=== PATIENT | female | born 1980 | race Caucasian/White ===

== ENCOUNTER 2020-02-23 15:24 | Outpatient (CLI) | payer BC, SELFPAY ==
--- NOTE | ~2020-02-23 | CT_ITS ---
EXAMINATION: CT abdomen pelvis wo con DATE: 02/23/2020 16:13 INDICATION: Unspecified abdominal pain TECHNIQUE: Computed tomography (CT) of the abdomen and pelvis was performed without intravenous contr ast. The dose-length product (DLP) was 1088.46 mGy-cm. Automated exposure control and iterative recon struction technique were employed. COMPARISON: 09/30/2010 FINDINGS: The lung bases are clear. The heart size is normal. The liver is diffusely low in attenuati on when compared with the spleen, consistent with hepatic steatosis. The spleen, pancreas, gallbladde r, and adrenal glands are normal. There are punctate nonobstructing stones of the left kidney. The ri ght kidney is normal. No stones are identified in the ureters or bladder. There is no hydronephrosis or hydroureter. The appendix is normal. No pathologically enlarged abdominal or pelvic lymph nodes ar e identified. There is no free intraperitoneal gas or evidence of bowel obstruction. IMPRESSION: 1. No CT correlate for the patient's symptoms. 2. Punctate nonobstructing left nephrolithiasis. 3. Diffuse hepatic steatosis. Reviewed, dictated and finalized at location A.
[2020-02-23 16:45] LABS: Hematocrit 39.8 % (37.0-47.0); Hemoglobin 14.1 g/dL (12.0-15.0); Mean Corpuscular HGB Conc 35.4 g/dl (32-36); Mean Corpuscular Hemoglobin 28.7 pg (26-34); Mean Corpuscular Volume 80.9 fl (80-100); Mean Platelet Volume 11.6 fl (7.4-10.4); Platelet Count Result 261 k/mm3 (150-375); Red Blood Count 4.92 M/mm3 (4.2-5.4); Red Cell Distribution Width 13.8 % (11.5-14.5); White Blood Count 9.5 K/mm3 (4.5-10.0)
[2020-02-23 16:58] LABS: Alanine Aminotransferase 29 U/L (4-35); Albumin Level 4.2 g/dL (3.5-5.1); Alkaline Phosphatase 61 U/L (38-126); Anion Gap 6 mmol/L (8-16); Aspartate Amino Transferase 28 U/L (14-36); Bilirubin,Total 0.4 mg/dL (0.2-1.3); Blood Urea Nitrogen 11 mg/dL (7-17); Calcium 9.6 mg/dL (8.4-10.2); Carbon Dioxide 28 mmol/L (22-30); Chloride 105 mmol/L (98-107); Cholesterol 159 mg/dL (0-200); Estimated Glomerular Filt Rate > 60; Glucose 93 mg/dL (65-105); HDL Direct 51 mg/dL; Potassium 3.7 mmol/L (3.4-5.0); Sodium 139 mmol/L (137-145); Triglycerides 306 mg/dL (<150)
[2020-02-23 17:00] LABS: Add Urine Microscopic? YES; Appearance Urine Clear (Clear); Bacteria Urine Trace /hpf; Bilirubin Urine Negative (Negative); Blood Urine 2+ (Negative); Color Urine Yellow (Yellow); Glucose Urine UA Negative (Negative); Ketones Urine Negative (Negative); Leukocyte Esterase Ur Trace LEU/UL (Negative); Mucus Urine Rare /lpf; Nitrate Urine Negative (Negative); Protein Urine Negative (Negative); RBC Urine 0-2 /hpf (0-2); Specific Grav Ur 1.016 (1.001-1.035); Squamous Epithelial Cell Urine Many /hpf (Few); Urobilinogen Urine Negative mg/dL (<2.0)
[2020-02-23 17:08] LABS: LDL Cholesterol Direct 87 mg/dL
== END 2020-02-23 15:25 | disposition home or self-care (01) ==
PROVIDERS: Nurse Practitioner; PCP Internal Medicine; Visit Provider Nurse Practitioner
DX: R31.9 Hematuria, unspecified (principal); D50.9 Iron deficiency anemia, unspecified; Z13.6 Encounter for screening for cardiovascular disorders; R10.9 Unspecified abdominal pain; K76.0 Fatty (change of) liver, not elsewhere classified; N20.0 Calculus of kidney
CPT/HCPCS: 36415; 74176; 80053; 80061; 81001; 85027; 87086; 87088

== ENCOUNTER 2020-03-15 13:46 | Outpatient (CLI) | payer BC, SELFPAY ==
--- NOTE | ~2020-03-15 | MMUS_ITS ---
EXAMINATION: MM diagnostic judy BI w makenzie, US breast RT limited HISTORY: Bruising and palpable lump lower lateral right breast. History of blood disorder. TECHNIQUE: Additional 3-D tomosynthesis images of the breasts were performed and synthetic 2-D images were generated. CAD analysis was submitted and interpreted. High resolution Limited right breast ult rasound was performed. COMPARISON: No prior studies for comparison. BREAST PARENCHYMAL COMPOSITION: The breasts are heterogenously dense, which may obscure small masses. FINDINGS: MAMMOGRAPHIC FINDINGS: There is focal cluster of masses in the lower outer aspect of the right breast corresponding to the a tita of palpable concern. There is no mammographic evidence for malignancy in the left breast. ULTRASOUND: Limited right breast ultrasound: In the area of palpable concern in the right breast at 9:00 there is a cluster of partially cystic ma sses without internal vascularity, largest measuring 1.7 x 1.5 x 1.1 cm greatest dimension. IMPRESSION: 1. Cluster of complex cystic masses lower outer quadrant of the right breast. Given the history of br uising and bleeding disorder these masses likely represents areas of hematoma/seroma. 2. Recommend 3 month follow-up diagnostic right mammogram and ultrasound recommended to assess for re solution. BI-RADS category 3, probably benign findings. Reviewed, dictated and finalized at location A. IMPRESSION: 1. Cluster of complex cystic masses lower outer quadrant of the right breast. G iven the history of bruising and bleeding disorder these masses likely represen ts areas of hematoma/seroma. 2. Recommend 3 month follow-up diagnostic right mammogram and ultrasound recomm ended to assess for resolution. BI-RADS category 3, probably benign findings.
== END 2020-03-15 13:47 | disposition home or self-care (01) ==
PROVIDERS: PCP Internal Medicine; Visit Provider Obstetrics & Gynecology Gynecology
DX: R92.8 Other abnormal and inconclusive findings on diagnostic imaging of breast (principal)
CPT/HCPCS: 76642; 77062; 77066; G0279

== ENCOUNTER 2020-07-09 10:54 | Outpatient (CLI) | payer BC, SELFPAY ==
--- NOTE | ~2020-07-09 | XR_ITS ---
EXAMINATION: XR shoulder LT min 2V DATE: 07/09/2020 11:26 INDICATION: Left shoulder pain. TECHNIQUE: 4 views of left shoulder were obtained. COMPARISON: None. FINDINGS: Bone alignment is normal. No fracture. Joint spaces are well maintained. IMPRESSION: 1. Normal left shoulder. Reviewed, dictated and finalized at location A. GER TESTER IMPRESSION: 1. Normal left shoulder.
--- NOTE | ~2020-07-09 | XR_ITS ---
EXAMINATION: XR_RIBSBI_CR INDICATION: Pleurodynia TECHNIQUE: 3 views of the bilateral ribs were obtained. COMPARISON: None. FINDINGS: The lungs are free of acute opacities. There is no pleural effusion or pneumothorax. The ca rdiomediastinal silhouette is normal. No displaced rib fracture is identified. IMPRESSION: 1. No acute cardiopulmonary abnormality or evidence of displaced rib fracture. Reviewed, dictated and finalized at location A. IT ADMINISTRATION OFFICER
== END 2020-07-09 10:55 | disposition home or self-care (01) ==
LOC: ANHIMG 10:57
PROVIDERS: PCP Internal Medicine; Visit Provider Nurse Practitioner
DX: R07.81 Pleurodynia (principal); M25.512 Pain in left shoulder
CPT/HCPCS: 71110; 73030

== ENCOUNTER 2020-07-11 14:23 | Outpatient (CLI) | payer BC, SELFPAY ==
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
--- NOTE | ~2020-07-11 | CT_ITS ---
EXAMINATION: CT BRAIN W/O DATE: 07/11/2020 15:18 INDICATION: Headache TECHNIQUE: Computed tomography (CT) of the head was performed without intravenous contrast. The dose- length product was 1059.33 mGy-cm. COMPARISON: No prior studies for comparison. FINDINGS: Normal brain parenchymal volume for age. Normal silevr-white differentiation. No acute intrac ranial hemorrhage, infarction, mass or mass effect. No ventriculomegaly or midline shift. Midline sagittal images demonstrate a normal corpus callosum, c raniovertebral junction and sella turcica. Basilar cisterns are patent. Paranasal sinuses and mastoids are pneumatized. No depressed skull fractures. IMPRESSION: 1. No acute intracranial abnormality. Reviewed, dictated and finalized at location B. Y ROLLER
[2020-07-11 15:05] LABS: Estimated Glomerular Filt Rate 56
== END 2020-07-11 14:24 | disposition home or self-care (01) ==
LOC: ANHIMG 14:26
PROVIDERS: PCP Internal Medicine; Visit Provider Nurse Practitioner
DX: R51.9 Headache, unspecified (principal); S13.9XXA Sprain of joints and ligaments of unspecified parts of neck, initial encounter; X58.XXXA Exposure to other specified factors, initial encounter; M50.30 Other cervical disc degeneration, unspecified cervical region
CPT/HCPCS: 70470; 72125; Q9967

== ENCOUNTER 2020-08-05 10:54 | Outpatient (CLI) | payer BC, SELFPAY ==
--- NOTE | ~2020-08-05 | MR_ITS ---
EXAMINATION: MR shoulder LT wo/w con DATE: 08/05/2020 12:15 INDICATION: Left shoulder pain. TECHNIQUE: Magnetic resonance imaging (MRI) of the left shoulder was performed without and with 20 mL MultiHance intravenous contrast. Sequences included axial PD-weighted FS FSE and T1-weighted FS FSE, coronal oblique PD-weighted FS FSE and T2-weighted FS FSE, sagittal oblique T2-weighted FS FSE and T 1-weighted FSE, and postcontrast axial, sagittal oblique, and coronal oblique T1-weighted FS FSE. COMPARISON: Left shoulder radiographs 07/09/2020 FINDINGS: Coracoacromial arch: The acromion undersurface is curved in morphology (type II). The acromioclavicular joint is normal. T here is mild subacromial/subdeltoid bursitis. Rotator cuff: There is mild supraspinatus and infraspinatus tendinopathy. Teres minor tendon is normal. Subscapular is tendon is normal. There is no asymmetric fatty atrophy of the rotator cuff muscle bellies. Biceps tendon and glenoid labrum: Biceps tendon is in bicipital groove. Intra-articular biceps tendon is normal. The glenoid labrum is normal. Fluid: There is no glenohumeral joint effusion. Bones/cartilage: Glenoid cartilage is normal. Humeral head cartilage is normal. IMPRESSION: 1. Mild rotator cuff tendinopathy. No tear. 2. Mild subacromial/subdeltoid bursitis. Reviewed, dictated and finalized at location A. TANK LAMINATOR
[2020-08-05 11:32] LABS: Estimated Glomerular Filt Rate > 60
== END 2020-08-05 10:55 | disposition home or self-care (01) ==
PROVIDERS: PCP Internal Medicine; Visit Provider Nurse Practitioner
DX: M25.512 Pain in left shoulder (principal); R20.0 Anesthesia of skin; M75.52 Bursitis of left shoulder
CPT/HCPCS: 73223; A9577

== ENCOUNTER 2020-09-20 15:45 | Outpatient (RCR) | payer BC, SELFPAY ==
[2020-08-14 14:47] VITALS: BP_SYST 83
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
[2020-09-20 15:45] VITALS: BP_SYST 74
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
== END 2020-10-29 10:57 | disposition home or self-care (01) ==
LOC: ANHPT 15:45
PROVIDERS: PCP Internal Medicine; Visit Provider Nurse Practitioner
DX: M25.512 Pain in left shoulder (principal)
CPT/HCPCS: 97014; 97110; 97140; 97162; G0283

== ENCOUNTER 2021-02-10 18:59 | Emergency (ER) | payer BC, SELFPAY ==
--- NOTE | 2021-02-10 19:13 | ED.URI ---
HPI - URI/Sore Throat General Chief Complaint: Upper Respiratory Infection Stated Complaint: sore throat Source: patient Mode of arrival: ambulatory Limitations: no limitations History of Present Illness HPI Narrative: Patient is a 40-year-old female who presents complaining of sore throat x1 day. Patient reports her son was diagnosed with strep throat earlier today. Patient reports increased pain in throat throughout the afternoon. She denies taking [id number] medications. She denies significant medical history. She denies all other complaints at this time. MD elicited complaint: sore throat Related Data Home Medications Medication Instructions Recorded Confirmed prazosin 1 mg PO DAILY 02/10/21 Allergies Allergy/AdvReac Type Severity Reaction Status Date / Time No Known Allergies Allergy Unknown Verified 02/10/21 19:20 Review of Systems Review of Systems: CONSTITUTIONAL: Denies fever, chills, or sweats. EYES: Denies visual changes, redness, or discharge. ENT: Reports sore throat CARDIOVASCULAR: Denies chest pain, palpitations, or edema. RESPIRATORY: Denies cough or dyspnea. GASTROINTESTINAL: Denies abdominal pain, nausea, vomiting, or diarrhea. GENITOURINARY: Denies dysuria or hematuria. SKIN: Denies rash or itching. MUSCULOSKELETAL: Denies back pain, joint pain, or myalgia. NEUROLOGIC: Denies headache, numbness, dizziness, or weakness. PSYCHIATRIC: Denies anxiety or depression. [facility] Past Medical History Medical History Obesity Family History Family History Sibling Family history of mental disorder Depression Family history of migraine headaches Father Depression Hypertension Mother Family history of diabetes mellitus in first degree relative Diabetes mellitus Social History Social History Smoking packs per day: 0.5 Smoking cigarettes per day: 10.0 Years smoked: 4 Smoking pack-years: 2.00 Smoking status: Current every day smoker Tobacco type: cigarettes Smoking end date: 08/05/06 Alcohol intake: never Comments At the time of signature, I have reviewed and agree with nursing past medical, surgical, social, and family history unless otherwise noted. Please see nursing chart for further information. There is no relevant family history pertinent to the presenting complaint. Exam Narrative: GENERAL: Well-appearing, well-nourished, and in no acute distress. HEAD: Normocephalic, atraumatic. EYES: EOMI. No redness or drainage. Conjunctiva are normal. ENT: Mucous membranes pink and moist. Nares clear. No rhinorrhea. TMs normal bilaterally. Throat with moderate erythema and edema. Uvula midline. NECK: AROM. Supple. No lymphadenopathy. CHEST: No respiratory distress. HEART: Regular rate and rhythm. EXTREMITIES: Normal range of motion. SKIN: Warm, dry, no rash. NEURO: No focal deficits. Alert and oriented x3. Gait steady. PSYCH: Normal affect. No signs of depression or anxiety. Course Vital Signs Vital signs: Vital Signs Temperature 36.5 C 02/10/21 19:23 Pulse Rate 78 02/10/21 19:23 Respiratory Rate 16 02/10/21 19:23 Blood Pressure 126/97 H 02/10/21 19:23 Pulse Oximetry 100 02/10/21 19:23 Temperature 36.5 C 02/10/21 19:23 Pulse Rate 78 02/10/21 19:23 Respiratory Rate 16 02/10/21 19:23 Blood Pressure 126/97 H 02/10/21 19:23 Pulse Oximetry 100 02/10/21 19:23 MDM - URI/Sore Throat MDM Narrative Medical decision making narrative: patient's rapid strep is negative. Patient has moderate erythema edema to throat, patient to be treated with antibiotics this time for tonsillitis. Discussed plan of care with patient. Patient is stable for discharge to home with outpatient follow-up as discussed. Differential Diagnosis Differential diagnosis: Likely upper re
[2021-02-10 19:23] VITALS: BP 126/97; PULSE 78; RESP 16; TEMP 36.5; O2SAT 100
== END 2021-02-10 19:46 | disposition home or self-care (01) ==
PROVIDERS: Emergency Provider Nurse Practitioner; PCP Internal Medicine
DX: J03.90 Acute tonsillitis, unspecified (principal); F17.210 Nicotine dependence, cigarettes, uncomplicated; E66.9 Obesity, unspecified; Z68.42 Body mass index [BMI] 45.0-49.9, adult
CPT/HCPCS: 87081; 87880; 99213; G0463

== ENCOUNTER 2022-01-18 11:55 | Outpatient (CLI) | payer BC, SELFPAY ==
--- NOTE | ~2022-01-18 | XR_ITS ---
EXAM: XR foot RT min 3V DATE: 01/18/2022 12:16 HISTORY: M79.673 - Pain in unspecified foot . COMPARISON: None available. FINDINGS: Normal mineralization. No fracture or dislocation. No lytic or blastic lesion. Joint space s are maintained. Mild hallux valgus No erosion or periosteal change. Soft tissues within normal limi ts. Large os navicularis. IMPRESSION: Large os navicularis, which can be a source of chronic medial ankle pain in some patients . Mild hallux valgus. Reviewed, dictated and finalized at location K. IMPRESSION: Large os navicularis, which can be a source of chronic medial ankle pain in some patients. Mild hallux valgus.
== END 2022-01-18 11:56 | disposition home or self-care (01) ==
PROVIDERS: PCP Internal Medicine; Visit Provider Internal Medicine
DX: M79.671 Pain in right foot (principal)
CPT/HCPCS: 73630

== ENCOUNTER 2022-02-12 16:22 | Outpatient (CLI) | payer BC, SELFPAY ==
[2022-02-12 16:55] LABS: Alanine Aminotransferase 142 U/L (6-35); Aspartate Amino Transferase 127 U/L (14-36)
== END 2022-02-12 16:23 | disposition home or self-care (01) ==
LOC: ANHLAB 16:24
PROVIDERS: PCP Internal Medicine; Visit Provider Podiatrist Foot & Ankle Surgery
DX: B35.1 Tinea unguium (principal)
CPT/HCPCS: 36415; 84450; 84460

== ENCOUNTER 2023-02-06 17:27 | Emergency (ER) | payer BC, SELFPAY ==
--- NOTE | ~2023-02-06 | CT_ITS ---
EXAMINATION: CT abdomen pelvis w con DATE: 02/06/2023 21:23 INDICATION: Right lower quadrant pain TECHNIQUE: Computed tomography (CT) of the abdomen and pelvis was performed with 100 mL Omnipaque-350 intravenous contrast. Automated exposure control and iterative reconstruction technique were employe d. The dose-length product was 881.91 mGy-cm. COMPARISON: 02/23/2020. FINDINGS: Lower thorax: Unremarkable Liver: Diffuse fatty infiltration. Biliary/Gallbladder: Cholelithiasis, without inflammatory change. No bile duct dilation. Pancreas: No mass or duct dilation. Spleen: Normal. Adrenals:No mass. Kidneys: No suspicious mass, obstructing stone, or hydronephrosis. GI tract: No small or large bowel dilation. Normal appendix. Mesentery/Peritoneum: No ascites, mass, or free air. Retroperitoneum: No mass. Pelvis: Pelvic organs are within normal limits. Soft Tissues: Soft tissues and body wall unremarkable. Bones: No acute osseous finding. IMPRESSION: Hepatic steatosis. Cholelithiasis, without inflammatory change. Otherwise unremarkable CT abdomen and pelvis findings. Reviewed, dictated and finalized at location K.
--- NOTE | ~2023-02-06 | US_ITS ---
EXAMINATION: US pelvic complete w TV DATE: 02/06/2023 21:24 INDICATION: right lower quadrant pain TECHNIQUE: Multiple transabdominal and endovaginal sonographic images of the pelvis were obtained. COMPARISON: CT abdomen and pelvis, same date. FINDINGS: Uterus: 8.8 x 3.5 x 4.0 cm. Endometrial complex measures 6 mm. Right Ovary: 1.9 x 2.5 x 1.9 cm. No vascular flow. No adnexal mass Left Ovary: 2.1 x 4.6 x 1.9 cm. Vascular flow is present. No adnexal mass There is no free fluid in the pelvis. IMPRESSION: No vascular flow detected in the right ovary, which could indicate presence of ovarian torsion in the appropriate clinical context. Reviewed, dictated and finalized at location K.
[2023-02-06 17:32] VITALS: BP 173/114; PULSE 72; RESP 20; TEMP 36.4; O2SAT 99
--- NOTE | 2023-02-06 18:04 | ED.ABDPAIN ---
HPI - Abdominal Pain General Chief Complaint: Abdominal Pain Stated Complaint: RLQ pain Time Seen by Provider: 02/06/23 17:42 History of Present Illness HPI narrative: This is a 42-year-old female, with history of depression and hypertension, who presents emergency department complaining of right lower quadrant abdominal pain. The patient states she was at rest, when she had sudden onset right lower quadrant abdominal pain, rated 10/10 described as sharp. The pain initially began in the right lower flank that has moved to the right lower quadrant/pelvis. Related Data Home Medications Medication Instructions Recorded Confirmed prazosin 1 mg capsule 1 mg PO DAILY 02/10/21 04/14/22 quetiapine 100 mg tablet 100 mg PO QHS 03/04/21 04/14/22 Allergies Allergy/AdvReac Type Severity Reaction Status Date / Time No Known Allergies Allergy Unknown Verified 02/06/23 17:43 Review of Systems Review of Systems: CONSTITUTIONAL: Denies fever, chills, or sweats. CARDIOVASCULAR: Denies chest pain, palpitations, or edema. RESPIRATORY: Denies cough or dyspnea. GASTROINTESTINAL: Right lower quadrant abdominal pain denies nausea, vomiting, or diarrhea. GENITOURINARY: Denies dysuria or hematuria. SKIN: Denies rash or itching. MUSCULOSKELETAL: Denies back pain, joint pain, or myalgia. NEUROLOGIC: Denies headache, numbness, dizziness, or weakness. PSYCHIATRIC: Denies anxiety or depression. [facility] Past Medical History Medical History (Updated 02/06/23 @ 22:19 by Trip Quinn MD) Depression Essential (primary) hypertension Migraine, unspecified, not intractable, without status migrainosus Obesity Surgical History Surgical History (Updated 02/06/23 @ 18:08 by Trip Quinn MD) History of arthroplasty of left shoulder Family History Family History Sibling Family history of mental disorder Depression Family history of migraine headaches Father Depression Hypertension Mother Family history of diabetes mellitus in first degree relative Diabetes mellitus Social History Social History Smoking packs per day: 0.5 Smoking cigarettes per day: 10.0 Years smoked: 4 Smoking pack-years: 2.00 Smoking status: Former smoker Tobacco type: cigarettes Second hand tobacco smoke exposure: No Smoking end date: 08/05/06 Alcohol intake: never Substance use: never Substance use type: does not use Lack of Transportation: No Lack of Food: Never True Current Housing: I Have Housing Concerned About Future Housing: No Difficulty Paying Gas/Electric Bills: No Difficulty Paying for Meds: No Currently Unemployed: No Education: Bachelor's Degree Difficulty w/ Childcare or Family Care: No Exam Narrative: GENERAL: Well-developed, well-nourished, appears uncomfortable HEAD: Normocephalic, atraumatic. EYES: PERRLA and EOMI. ENT: Nares clear, no rhinorrhea or epistaxis. Mucous membranes moist. Oropharynx without tonsillar hypertrophy exudate or other lesions. CHEST: Clear to auscultation. No respiratory distress. No wheezes rales or rhonchi HEART: Regular rate and rhythm. No murmur heard. Normal peripheral pulses. ABDOMEN: Soft, tender to palpation in the right lower quadrant, without rebound or guarding, nondistended, normal active bowel sounds. No CVA tenderness to palpation EXTREMITIES: Normal range of motion. No edema. SKIN: Warm, dry, no rash. NEURO: Alert and oriented x3. Moving all 4 limbs purposefully. PSYCH: Normal mood and affect. Course Course Emergency Course: 21:57 - White blood cell count elevated at 10.5 with an otherwise unremarkable CBC. Chemistry is unremarkable. UA demonstrates hematuria without other changes concerning for infection. CT abdomen pelvis demonstrates cholelithiasis but is otherwise unremarkable. Pelvic ultrasound, demonstrates no v
[2023-02-06 18:15] LABS: Basophils Absolute Auto 0.1 K/mm3 (0.0-0.1); Basophils Percent Auto 0.5 % (0.2-1.2); Eosinophils Absolute Auto 0.6 K/mm3 (0-0.3); Eosinophils Percent Auto 6.1 % (0-4.4); Hematocrit 40.6 % (37.0-47.0); Hemoglobin 14.3 g/dL (12.0-15.0); Immature Granulocyte Absolute 0.03 K/mm3 (0.00-0.031); Immature Granulocyte Percent A 0.3 % (0-0.5); Lymphocytes Absolute Auto 4.07 K/mm3 (0.9-3.2); Lymphocytes Percent Auto 39.6 % (18.3-44.2); Mean Corpuscular HGB Conc 35.2 g/dl (32-36); Mean Corpuscular Hemoglobin 27.9 pg (26-34); Mean Corpuscular Volume 79.3 fl (80-100); Mean Platelet Volume 11.6 fl (7.4-10.4); Monocytes Absolute Auto 0.6 K/mm3 (0.1-0.6); Monocytes Percent Auto 5.4 % (2.6-8.5); Neutrophils Absolute Auto 4.9 K/mm3 (1.3-6.7); Neutrophils Percent Auto 48.1 % (45.5-73.1); Platelet Count Result 234 k/mm3 (150-375); Red Blood Count 5.12 M/mm3 (4.2-5.4); Red Cell Distribution Width 13.3 % (11.5-14.5); White Blood Count 10.3 K/mm3 (4.5-10.0)
[2023-02-06 18:19] LABS: Alanine Aminotransferase 38 U/L (6-35); Albumin Level 4.4 g/dL (3.5-5.1); Alkaline Phosphatase 89 U/L (38-126); Anion Gap 6 mmol/L (8-16); Aspartate Amino Transferase 36 U/L (14-36); Bilirubin,Total 0.5 mg/dL (0.2-1.3); Blood Urea Nitrogen 11 mg/dL (7-17); Calcium 9.3 mg/dL (8.4-10.2); Carbon Dioxide 27 mmol/L (22-30); Chloride 105 mmol/L (98-107); Estimated Glomerular Filt Rate > 60; Glucose 103 mg/dL (65-110); Lipase 47 U/L (23-300); Potassium 3.5 mmol/L (3.4-5.0); Sodium 138 mmol/L (137-145)
[2023-02-06 19:02] LABS: Lactic Acid Reflex 1.5 mmol/L (0.7-2.0)
[2023-02-06] MEDS: ONDANSETRON INJ 4 MG/2 ML VIAL IV PUSH (19:18)
[2023-02-06] MEDS: SODIUM CHLORIDE 0.9% IV 2,000 ML 999 ML IV CONT (19:19)
[2023-02-06] MEDS: MORPHINE SULFATE (*CRX) 4 MG/ML INJ IV PUSH (19:20)
[2023-02-06 19:43] LABS: Appearance Urine Cloudy (Clear); Bacteria Urine None Seen /hpf; Bilirubin Urine Negative (Negative); Blood Urine 3+ (Negative); Color Urine Yellow (Yellow); Glucose Urine UA Negative (Negative); Ketones Urine Negative (Negative); Leukocyte Esterase Ur Trace LEU/UL (Negative); Nitrate Urine Negative (Negative); Non Pathogenic Casts 0-2; Protein Urine Negative (Negative); RBC Urine 51-100 /hpf (0-2); Specific Grav Ur 1.009 (1.001-1.035); Squamous Epithelial Cell Urine Occasional /hpf (Few); Urobilinogen Urine 0.2 mg/dL (<2.0); WBC Urine 0-5 /hpf; pH Urine 6.5 (5.0-9.0)
[2023-02-06 19:48] LABS: Add Urine Microscopic? YES
--- NOTE | 2023-02-06 20:06 | PC.NURSE ---
Pt in imaging at this time.
[2023-02-06 21:35] VITALS: PULSE 72; RESP 16; O2SAT 100
[2023-02-06 21:53] VITALS: BP 166/108; PULSE 63; RESP 18; O2SAT 97
[2023-02-06 23:01] VITALS: BP 175/113; PULSE 64; RESP 16; O2SAT 97
== END 2023-02-06 23:03 | disposition left against medical advice (07) ==
PROVIDERS: Emergency Provider Preventive Medicine Aerospace Medicine; PCP Internal Medicine
DX: N83.9 Noninflammatory disorder of ovary, fallopian tube and broad ligament, unspecified (principal); I10 Essential (primary) hypertension; F32.A Depression, unspecified; E66.9 Obesity, unspecified; Z96.612 Presence of left artificial shoulder joint; Z87.891 Personal history of nicotine dependence; K76.0 Fatty (change of) liver, not elsewhere classified; K80.20 Calculus of gallbladder without cholecystitis without obstruction
CPT/HCPCS: 36415; 74177; 76830; 76856; 80053; 81001; 81025; 83605; 83690; 85025; 96361; 96374; 96375; 99284; J2270; J2405; J7030; Q9967

== ENCOUNTER 2023-02-09 12:34 | Emergency (ER) | payer BC, SELFPAY ==
[2023-02-09] VITALS (7 sets, daily range): BP systolic 130–172; BP diastolic 80–116; PULSE 62–93; RESP 16–18; TEMP 36.7–36.8; O2SAT 93–99
--- NOTE | ~2023-02-09 | US_ITS ---
EXAMINATION: US pelvic complete w TV DATE: 02/09/2023 15:48 INDICATION: Right ovarian torsion Comparison:Ultrasound dated 02/06/2023 TECHNIQUE: Multiple transabdominal and endovaginal sonographic images of the pelvis performed. FINDINGS: The uterus measures 7.8 x 3.4 x 4.3 cm. The endometrial complex measures 6 mm. Endometrium is somewhat heterogeneous. The right ovary measures 3.2 x 2 x 2.3 cm and the left ovary measures 3.5 x 3.1 x 2.5 cm. There is a left ovarian cyst measuring 2.4 cm. There are small follicles in each ovary. Normal doppler signal in both ovaries. There is no free fluid in the pelvis. There are no abnormal masses seen on either side. IMPRESSION: 1. Left ovarian cyst measuring 2.4 cm. Otherwise, unremarkable pelvic ultrasound. No evidence for ova tyler torsion. Reviewed, dictated and finalized at location L. IMPRESSION: 1. Left ovarian cyst measuring 2.4 cm. Otherwise, unremarkable pelvic ultrasoun d. No evidence for ovarian torsion.
--- NOTE | ~2023-02-09 | CT_ITS ---
EXAMINATION: CT abdomen pelvis w con DATE: 02/09/2023 17:00 INDICATION: low abd pain TECHNIQUE: Computed tomography (CT) of the abdomen and pelvis was performed with 100 mL Omnipaque-350 intravenous contrast. Automated exposure control and iterative reconstruction technique were employe d. The dose-length product was 930.20 mGy-cm. COMPARISON: 02/06/2023. FINDINGS: Lower thorax: Unremarkable Liver: Enlarged, diffusely fatty infiltrated. Biliary/Gallbladder: Small gallstone, no inflammatory change. No bile duct dilation. Pancreas: No mass or duct dilation. Spleen: Normal. Adrenals:No mass. Kidneys: No suspicious mass, obstructing stone, or hydronephrosis. GI tract: No small or large bowel dilation. Normal appendix. Mesentery/Peritoneum: No ascites, mass, or free air. Retroperitoneum: No mass. Pelvis: Pelvic organs are within normal limits. Incidental note of a 2.1 cm left ovarian cyst. Soft Tissues: Soft tissues and body wall unremarkable. Enlarged left inguinal lymph nodes, increase s feroz the prior study, with new mild inflammatory change. Bones: No acute osseous finding. IMPRESSION: Left inguinal lymphadenopathy. Hepatomegaly with steatosis. Otherwise unremarkable CT abdomen and pelvis findings Reviewed, dictated and finalized at location K.
[2023-02-09 13:33] LABS: Basophils Absolute Auto 0.1 K/mm3 (0.0-0.1); Basophils Percent Auto 0.6 % (0.2-1.2); Eosinophils Absolute Auto 0.8 K/mm3 (0-0.3); Eosinophils Percent Auto 7.1 % (0-4.4); Hematocrit 42.6 % (37.0-47.0); Hemoglobin 14.8 g/dL (12.0-15.0); Immature Granulocyte Absolute 0.04 K/mm3 (0.00-0.031); Immature Granulocyte Percent A 0.4 % (0-0.5); Lymphocytes Absolute Auto 3.55 K/mm3 (0.9-3.2); Lymphocytes Percent Auto 32.8 % (18.3-44.2); Mean Corpuscular HGB Conc 34.7 g/dl (32-36); Mean Corpuscular Volume 80.5 fl (80-100); Mean Platelet Volume 11.4 fl (7.4-10.4); Monocytes Absolute Auto 0.5 K/mm3 (0.1-0.6); Monocytes Percent Auto 4.5 % (2.6-8.5); Neutrophils Absolute Auto 5.9 K/mm3 (1.3-6.7); Neutrophils Percent Auto 54.6 % (45.5-73.1); Platelet Count Result 241 k/mm3 (150-375); Red Blood Count 5.29 M/mm3 (4.2-5.4); Red Cell Distribution Width 13.5 % (11.5-14.5); White Blood Count 10.8 K/mm3 (4.5-10.0)
[2023-02-09 13:41] LABS: Alanine Aminotransferase 36 U/L (6-35); Albumin Level 4.3 g/dL (3.5-5.1); Alkaline Phosphatase 78 U/L (38-126); Anion Gap 8 mmol/L (8-16); Aspartate Amino Transferase 37 U/L (14-36); Bilirubin,Total 0.6 mg/dL (0.2-1.3); Blood Urea Nitrogen 12 mg/dL (7-17); Calcium 9.3 mg/dL (8.4-10.2); Carbon Dioxide 26 mmol/L (22-30); Chloride 103 mmol/L (98-107); Estimated Glomerular Filt Rate > 60; Glucose 143 mg/dL (65-110); Lipase 51 U/L (23-300); Potassium 3.3 mmol/L (3.4-5.0); Sodium 137 mmol/L (137-145)
[2023-02-09 14:17] LABS: Appearance Urine Cloudy (Clear); Bacteria Urine 1+ /hpf; Bilirubin Urine Negative (Negative); Blood Urine Negative (Negative); Color Urine Yellow (Yellow); Glucose Urine UA Negative (Negative); Ketones Urine Negative (Negative); Leukocyte Esterase Ur Trace LEU/UL (Negative); Nitrate Urine Negative (Negative); Protein Urine Negative (Negative); RBC Urine 0-2 /hpf (0-2); Specific Grav Ur 1.017 (1.001-1.035); Squamous Epithelial Cell Urine Moderate /hpf (Few); Urobilinogen Urine 0.2 mg/dL (<2.0); pH Urine 6.5 (5.0-9.0)
[2023-02-09 14:39] LABS: Add Urine Microscopic? YES
--- NOTE | 2023-02-09 14:57 | ED.FEMALEGU ---
HPI - Female Genitourinary General Chief complaint: [employer] Stated complaint: ab pain Time Seen by Provider: 02/09/23 14:15 Source: patient Mode of arrival: ambulatory Limitations: no limitations History of Present Illness HPI Narrative: This is a 42 year old female that presents to the ER for RLQ pain. Ongoing over the last 4 days. She was evaluated at the ER here for this at that time. She was diagnosed with possible ovarian torsion. Signed out AMA. Followed up with her OB today and was told to come back to the ER. Reports worsening pain today. Denies fever, nausea, vomiting or dysuria. Related Data Home Medications Medication Instructions Recorded Confirmed prazosin 1 mg capsule 1 mg PO DAILY 02/10/21 04/14/22 quetiapine 100 mg tablet 100 mg PO QHS 03/04/21 04/14/22 Allergies Allergy/AdvReac Type Severity Reaction Status Date / Time No Known Allergies Allergy Unknown Verified 02/06/23 17:43 Review of Systems Review of Systems: CONSTITUTIONAL: Denies fever GASTROINTESTINAL: Reports abdominal pain. Denies nausea, vomiting, or diarrhea. GENITOURINARY: Denies dysuria or hematuria. All systems reviewed & are unremarkable except as noted in HPI and below PMFSH Past Medical History Medical History (Updated 02/09/23 @ 17:52 by Keely Partida PA-C) Depression Essential (primary) hypertension Migraine, unspecified, not intractable, without status migrainosus Obesity Surgical History Surgical History (Updated 02/06/23 @ 18:08 by Trip Quinn MD) History of arthroplasty of left shoulder Family History Family History Sibling Family history of mental disorder Depression Family history of migraine headaches Father Depression Hypertension Mother Family history of diabetes mellitus in first degree relative Diabetes mellitus Social History Social History Smoking packs per day: 0.5 Smoking cigarettes per day: 10.0 Years smoked: 4 Smoking pack-years: 2.00 Smoking status: Former smoker Tobacco type: cigarettes Second hand tobacco smoke exposure: No Smoking end date: 08/05/06 Alcohol intake: never Substance use: never Substance use type: does not use Lack of Transportation: No Lack of Food: Never True Current Housing: I Have Housing Concerned About Future Housing: No Difficulty Paying Gas/Electric Bills: No Difficulty Paying for Meds: No Currently Unemployed: No Education: Bachelor's Degree Difficulty w/ Childcare or Family Care: No Exam Narrative: GENERAL: Well-appearing, well-nourished, and in no acute distress. HEAD: Normocephalic, atraumatic. EYES: EOMI. CHEST: Clear to auscultation. No respiratory distress. No wheezes rales or rhonchi HEART: Regular rate and rhythm. No murmur heard. Normal peripheral pulses. ABDOMEN: Soft, nondistended, normal active bowel sounds. Tender to palpation of the right lower quadrant/abdomen, without guarding EXTREMITIES: Normal range of motion. No edema. SKIN: Warm, dry, no rash. NEURO: No focal deficits. Alert and oriented x3. PSYCH: Normal mood and affect Course Course Emergency Course: Patient was updated on workup and agrees with plan of care Consultations Consultation #1: Spoke with Dr. Melendrez about patient and workup. Patient may follow up in clinic with Dr. Stroud Date: 02/09/23 Vital Signs Vital signs: Vital Signs Temperature 98.0 F 02/09/23 12:52 Pulse Rate 93 02/09/23 12:52 Respiratory Rate 18 02/09/23 12:52 Blood Pressure 172/116 H 02/09/23 12:52 Pulse Oximetry 99 02/09/23 12:52 Oxygen Delivery Room Air 02/09/23 12:52 Temperature 98.3 F 02/09/23 15:46 Pulse Rate 16 L 02/09/23 18:18 Respiratory Rate 16 02/09/23 18:18 Blood Pressure 152/80 H 02/09/23 18:18 Pulse Oximetry 98 02/09/23 18:18 Oxygen Delivery Room Air 02/09/23 12:52
[2023-02-09] MEDS: MORPHINE SULFATE (*CRX) 4 MG/ML INJ IV PUSH (15:04)
[2023-02-09] MEDS: ONDANSETRON INJ 4 MG/2 ML VIAL IV PUSH (15:05)
[2023-02-09] MEDS: KETOROLAC 30 MG/ML VIAL (*BKC) (17:26)
[2023-02-09] MEDS: POTASSIUM CHLORIDE 20 MEQ ER TABLET 40 MEQ PO (18:33)
== END 2023-02-09 18:39 | disposition home or self-care (01) ==
PROVIDERS: Emergency Medicine; Emergency Provider Physician Assistant; PCP Internal Medicine
DX: N39.0 Urinary tract infection, site not specified (principal); R10.31 Right lower quadrant pain; I10 Essential (primary) hypertension; F32.A Depression, unspecified; E66.9 Obesity, unspecified; Z68.42 Body mass index [BMI] 45.0-49.9, adult; Z87.891 Personal history of nicotine dependence; N83.202 Unspecified ovarian cyst, left side; R16.0 Hepatomegaly, not elsewhere classified; K76.0 Fatty (change of) liver, not elsewhere classified
CPT/HCPCS: 36415; 74177; 76830; 76856; 80053; 81001; 81025; 83690; 85025; 87086; 96374; 96375; 99284; A9270; J1885; J2270; J2405; Q9967

== ENCOUNTER 2023-06-04 16:52 | Emergency (ER) | payer BC, SELFPAY ==
--- NOTE | 2023-06-04 17:03 | ED.URI ---
HPI - URI/Sore Throat General Chief Complaint: Upper Respiratory Infection Stated Complaint: R EARACHE/SINUS PRESSURE Time Seen by Provider: 06/04/23 17:04 Source: patient, RN notes reviewed and old records reviewed Mode of arrival: ambulatory Limitations: no limitations History of Present Illness HPI Narrative: 43-year-old female presents to the [facility] with complaints of right ear pain and sinus pressure that started 3 days ago. Patient states that she took an Excedrin and of Mucinex Has a history of high blood pressure, states that she does take her medications Onset (ago): day(s) (3) Related Data Home Medications Medication Instructions Recorded Confirmed prazosin 1 mg capsule 1 mg PO DAILY 02/10/21 06/04/23 quetiapine 100 mg tablet 100 mg PO QHS 03/04/21 06/04/23 Allergies Allergy/AdvReac Type Severity Reaction Status Date / Time No Known Allergies Allergy Unknown Verified 06/04/23 17:00 Review of Systems Review of Systems: All systems reviewed & are unremarkable except as noted in HPI and below Constitutional: Constitutional: Reports no additional constitutional complaints Eyes: Eyes: Reports no additional eye complaints ENT: Reports as per HPI, Reports otalgia and Reports sinus pressure Cardiovascular: Cardiovascular: Reports no additional cardiovascular complaints, Denies chest pain and Denies dyspnea Respiratory: Respiratory: Reports no additional respiratory complaints, Denies chest congestion, Denies cough and Denies dyspnea Gastrointestinal: Gastrointestinal: Reports no additional gastrointestinal complaints, Denies abdominal pain, Denies nausea and Denies vomiting Musculoskeletal: Musculoskeletal: Reports no additional musculoskeletal complaints Integumentary/Breasts: Skin/Breast: Reports system reviewed and no additional complaints, except as docu Neurologic: Reports system reviewed and no additional complaints, except as documented Psychiatric: Psychiatric: Reports no additional psychiatric complaints Allergic/Immunologic: Allergic/Immunologic: Reports no additional allergic/immunologic complaints [facility] Past Medical History Medical History Depression Essential (primary) hypertension Migraine, unspecified, not intractable, without status migrainosus Obesity Surgical History Surgical History History of arthroplasty of left shoulder Family History Family History Sibling Family history of mental disorder Depression Family history of migraine headaches Father Depression Hypertension Mother Family history of diabetes mellitus in first degree relative Diabetes mellitus Social History Social History Smoking packs per day: 0.5 Smoking cigarettes per day: 10.0 Years smoked: 4 Smoking pack-years: 2.00 Smoking status: Former smoker Tobacco type: cigarettes Second hand tobacco smoke exposure: No Smoking end date: 08/05/06 Alcohol intake: never Substance use: never Substance use type: does not use Lack of Transportation: No Lack of Food: Never True Current Housing: I Have Housing Concerned About Future Housing: No Difficulty Paying Gas/Electric Bills: No Difficulty Paying for Meds: No Currently Unemployed: No Education: Bachelor's Degree Difficulty w/ Childcare or Family Care: No Comments At the time of my signature, I reviewed and agree with the nursing past medical, surgical, social, and family history. There is no relevant family history pertinent to the patient complaint. Exam Const: General: cooperative, healthy appearing, comfortable, no acute distress, well developed, alert and well nourished Nutritional Appearance: well nourished Orientation/consciousness: patient oriented x3 Limitations: no limitations [place]
[2023-06-04 17:07] VITALS: BP 184/113; PULSE 87; RESP 16; TEMP 36.6; O2SAT 98
== END 2023-06-04 17:33 | disposition home or self-care (01) ==
PROVIDERS: Emergency Provider Nurse Practitioner
DX: H65.03 Acute serous otitis media, bilateral (principal); R09.82 Postnasal drip; J06.9 Acute upper respiratory infection, unspecified; I10 Essential (primary) hypertension; Z87.891 Personal history of nicotine dependence; Z20.822 Contact with and (suspected) exposure to COVID-19
CPT/HCPCS: 87426; 87804; 99213; C9803; G0463

== ENCOUNTER 2023-11-15 16:41 | Emergency (ER) | payer BC, SELFPAY ==
[2023-11-15 16:50] VITALS: BP 178/114; PULSE 84; RESP 20; TEMP 36.4; O2SAT 99
[2023-11-15 16:53] VITALS: BP 178/114; PULSE 84; RESP 20; TEMP 36.4; O2SAT 99
--- NOTE | 2023-11-15 17:18 | ED.URI ---
HPI - URI/Sore Throat General Chief Complaint: Upper Respiratory Infection Stated Complaint: Sinus Infection Symptoms Time Seen by Provider: 11/15/23 16:58 Source: patient and RN notes reviewed Mode of arrival: ambulatory Limitations: no limitations History of Present Illness HPI Narrative: Patient presents today with a 5 day history of sinus pressure, bilateral ear pressure, with a 2 day history of sore throat. She is also experiencing some mild nausea intermittently. Denies cough or fever. Currently rates her pain 8/10, which increases with swallowing. She has tried Mucinex, Tylenol, and ibuprofen without much relief. Related Data Home Medications Medication Instructions Recorded Confirmed prazosin 1 mg capsule 1 mg PO DAILY 02/10/21 11/15/23 quetiapine 100 mg tablet 100 mg PO QHS 03/04/21 11/15/23 Allergies Allergy/AdvReac Type Severity Reaction Status Date / Time No Known Allergies Allergy Unknown Verified 06/04/23 17:00 Review of Systems Review of Systems: CONSTITUTIONAL: Denies body aches, fever, chills, or sweats. EYES: Denies visual changes, redness, or discharge. ENT: Denies rhinorrhea. + sore throat, bilateral ear pain, sinus pressure CARDIOVASCULAR: Denies chest pain, palpitations, or edema. RESPIRATORY: Denies cough or dyspnea. GASTROINTESTINAL: Denies abdominal pain, vomiting, or diarrhea.+ nausea GENITOURINARY: Denies dysuria or hematuria. SKIN: Denies rash, itching, or wounds. MUSCULOSKELETAL: Denies back pain, joint pain, or myalgia. NEUROLOGIC: Denies headache, numbness, tingling, or weakness. PSYCH: Denies depression or anxiety. [facility] Past Medical History Medical History Depression Essential (primary) hypertension Migraine, unspecified, not intractable, without status migrainosus Obesity Surgical History Surgical History History of arthroplasty of left shoulder Family History Family History Sibling Family history of mental disorder Depression Family history of migraine headaches Father Depression Hypertension Mother Family history of diabetes mellitus in first degree relative Diabetes mellitus Social History Social History Smoking packs per day: 0.5 Smoking cigarettes per day: 10.0 Years smoked: 4 Smoking pack-years: 2.00 Smoking status: Former smoker Tobacco type: cigarettes Second hand tobacco smoke exposure: No Smoking end date: 08/05/06 Alcohol intake: never Substance use: never Substance use type: does not use Lack of Transportation: No Lack of Food: Never True Current Housing: I Have Housing Concerned About Future Housing: No Difficulty Paying Gas/Electric Bills: No Difficulty Paying for Meds: No Currently Unemployed: No Education: Bachelor's Degree Difficulty w/ Childcare or Family Care: No Comments Reviewed Exam Narrative: GENERAL: Mildly ill-appearing, well-nourished, and in no acute distress. HEAD: Normocephalic, atraumatic. EYES: EOMI. No redness or drainage. Conjunctivae normal. ENT: Mucous membranes pink and moist. Nares clear. No rhinorrhea. TMs normal bilaterally. Throat mildly erythematous without edema or exudate. Uvula midline. NECK: Normal AROM. Supple. No lymphadenopathy. CHEST: No respiratory distress. Clear to auscultation. HEART: Regular rate and rhythm. No murmur appreciated. EXTREMITIES: Normal range of motion. No edema. SKIN: Warm, dry, no rash. Capillary refill normal. Normal skin turgor. NEURO: No focal deficits. Alert and oriented x3. Gait steady. PSYCH: Normal affect. No signs of depression or anxiety. Course Course Level of Care: Express Care Visit Vital Signs Vital signs: Vital Signs Temperature 97.5 F L 11/15/23 16:5
[2023-11-15 17:25] VITALS: BP 148/108
== END 2023-11-15 17:28 | disposition home or self-care (01) ==
PROVIDERS: Emergency Provider Nurse Practitioner; PCP Internal Medicine Geriatric Medicine
DX: J02.0 Streptococcal pharyngitis (principal); Z87.891 Personal history of nicotine dependence; I10 Essential (primary) hypertension; E66.9 Obesity, unspecified; Z68.41 Body mass index [BMI] 40.0-44.9, adult; F32.A Depression, unspecified
CPT/HCPCS: 87880; 99213; G0463

== ENCOUNTER 2024-02-23 19:01 | Emergency (ER) | payer BC, SELFPAY ==
[2024-02-23 19:13] VITALS: BP 169/117; PULSE 83; RESP 16; TEMP 36.6; O2SAT 100
--- NOTE | 2024-02-23 19:24 | ED.SKABFB ---
HPI - Skin/Abscess/Foreign Bdy General Chief complaint: Skin/Abscess/Foreign Body Stated complaint: RASH ON BACK Time Seen by Provider: 02/23/24 19:19 Source: patient and RN notes reviewed Mode of arrival: ambulatory Limitations: no limitations History of Present Illness HPI narrative: Patient presents today complaining of 5 day history of an itchy and painful rash to her upper back. States that started out as a small area in the back and now has spread to the entire upper back. She denies exposure to any new products, foods, medications, plants or animals. She has tried no [id number] treatment prior to arrival. Related Data Home Medications Medication Instructions Recorded Confirmed prazosin 1 mg capsule 1 mg PO DAILY 02/10/21 11/15/23 quetiapine 100 mg tablet 100 mg PO QHS 03/04/21 11/15/23 Allergies Allergy/AdvReac Type Severity Reaction Status Date / Time No Known Allergies Allergy Unknown Verified 06/04/23 17:00 Review of Systems Review of Systems: CONSTITUTIONAL: Denies body aches, fever, chills, or sweats. EYES: Denies visual changes, redness, or discharge. ENT: Denies rhinorrhea, congestion, sore throat, or otalgia. CARDIOVASCULAR: Denies chest pain, palpitations, or edema. RESPIRATORY: Denies cough or dyspnea. GASTROINTESTINAL: Denies abdominal pain, nausea, vomiting, or diarrhea. GENITOURINARY: Denies dysuria or hematuria. SKIN: + rash MUSCULOSKELETAL: Denies back pain, joint pain, or myalgia. NEUROLOGIC: Denies headache, numbness, tingling, or weakness. PSYCH: Denies depression or anxiety. [facility] Past Medical History Medical History Depression Essential (primary) hypertension Migraine, unspecified, not intractable, without status migrainosus Obesity Surgical History Surgical History History of arthroplasty of left shoulder Family History Family History Sibling Family history of mental disorder Depression Family history of migraine headaches Father Depression Hypertension Mother Family history of diabetes mellitus in first degree relative Diabetes mellitus Social History Social History Smoking packs per day: 0.5 Smoking cigarettes per day: 10.0 Years smoked: 4 Smoking pack-years: 2.00 Smoking status: Former smoker Tobacco type: cigarettes Second hand tobacco smoke exposure: No Smoking end date: 08/05/06 Alcohol intake: never Substance use: never Substance use type: does not use Lack of Transportation: No Lack of Food: Never True Current Housing: I Have Housing Concerned About Future Housing: No Difficulty Paying Gas/Electric Bills: No Difficulty Paying for Meds: No Currently Unemployed: No Education: Bachelor's Degree Difficulty w/ Childcare or Family Care: No Comments At time of signature, I have reviewed and agree with nursing past medical, surgical, social and family history unless otherwise noted. Please see nursing chart for further information. There is no relevant family history pertinent to the presenting complaint Exam Narrative: GENERAL: Well-appearing, well-nourished, and in no acute distress. HEAD: Normocephalic, atraumatic. EYES: EOMI. No redness or drainage. Conjunctivae normal. ENT: Mucous membranes pink and moist. NECK: Normal AROM. CHEST: No respiratory distress. EXTREMITIES: Normal range of motion. No edema. SKIN: Warm, dry. Capillary refill normal. Normal skin turgor. Widespread papular rash to the bilateral upper back area, slightly pink. No induration, drainage. NEURO: No focal deficits. Alert and oriented x3. Gait steady. PSYCH: Normal affect. No signs of depression or anxiety. Course Course Level of Care: Express Care Visit Vital Signs V
== END 2024-02-23 19:31 | disposition home or self-care (01) ==
PROVIDERS: Emergency Provider Nurse Practitioner; PCP Internal Medicine Geriatric Medicine
DX: R21 Rash and other nonspecific skin eruption (principal); Z87.891 Personal history of nicotine dependence; I10 Essential (primary) hypertension; E66.9 Obesity, unspecified; Z68.42 Body mass index [BMI] 45.0-49.9, adult; F32.A Depression, unspecified; Z96.612 Presence of left artificial shoulder joint
CPT/HCPCS: 99213; G0463

== ENCOUNTER 2024-11-09 18:06 | Emergency (ER) | payer BC, SELFPAY ==
[2024-11-09 18:32] VITALS: BP 168/114; PULSE 77; RESP 16; TEMP 36.8; O2SAT 99
--- NOTE | 2024-11-09 19:02 | ED.SKABFB ---
HPI - Skin/Abscess/Foreign Bdy General Chief complaint: Skin/Abscess/Foreign Body Stated complaint: Swollen Left Hand Time Seen by Provider: 11/09/24 18:57 Source: patient and RN notes reviewed Mode of arrival: ambulatory Limitations: no limitations History of Present Illness HPI narrative: Patient presents today complaining of swelling and pain to the dorsum of her left hand. She was helping a friend clean out their house when she was bit on her hand yesterday by an unknown insect or spider. She has been taking Benadryl and applying ice without relief. Currently rates her pain 09/07. Related Data Home Medications ?Medication ?Instructions ?Recorded ?Confirmed ?Last Taken ?Type prazosin 1 mg capsule 1 mg PO DAILY 02/10/21 02/23/24 Unknown History quetiapine 100 mg tablet 100 mg PO QHS 03/04/21 02/23/24 Unknown History Allergies Allergy/AdvReac Type Severity Reaction Status Date / Time No Known Allergies Allergy Unknown Verified 02/23/24 19:57 Review of Systems Review of Systems: CONSTITUTIONAL: Denies body aches, fever, chills, or sweats. EYES: Denies visual changes, redness, or discharge. ENT: Denies rhinorrhea, congestion, sore throat, or otalgia. CARDIOVASCULAR: Denies chest pain, palpitations, or edema. RESPIRATORY: Denies cough or dyspnea. GASTROINTESTINAL: Denies abdominal pain, nausea, vomiting, or diarrhea. GENITOURINARY: Denies dysuria or hematuria. SKIN: + insect bite to left hand MUSCULOSKELETAL: Denies back pain, joint pain, or myalgia. NEUROLOGIC: Denies headache, numbness, tingling, or weakness. PSYCH: Denies depression or anxiety. [facility] Past Medical History Medical History Depression Obesity Essential (primary) hypertension Migraine, unspecified, not intractable, without status migrainosus Surgical History Surgical History History of arthroplasty of left shoulder Family History Family History Sibling Family history of mental disorder Depression Family history of migraine headaches Father Depression Hypertension Mother Family history of diabetes mellitus in first degree relative Diabetes mellitus Social History Social History Smoking packs per day: 0.5 Smoking cigarettes per day: 10.0 Years smoked: 4 Smoking pack-years: 2.00 Smoking status: Former smoker Tobacco type: cigarettes Second hand tobacco smoke exposure: No Smoking end date: 08/05/06 Alcohol intake: never Substance use: never Substance use type: does not use Lack of Transportation: No Lack of Food: Never True Current Housing: I Have Housing Concerned About Future Housing: No Difficulty Paying Gas/Electric Bills: No Difficulty Paying for Meds: No Currently Unemployed: No Education: Bachelor's Degree Difficulty w/ Childcare or Family Care: No Comments At time of signature, I have reviewed and agree with nursing past medical, surgical, social and family history unless otherwise noted. Please see nursing chart for further information. There is no relevant family history pertinent to the presenting complaint Exam Narrative: GENERAL: Well-appearing, well-nourished, and in no acute distress. HEAD: Normocephalic, atraumatic. EYES: EOMI. No redness or drainage. Conjunctivae normal. ENT: Mucous membranes pink and moist. NECK: Normal AROM. CHEST: No respiratory distress. HEART: Regular rate and rhythm. No murmur appreciated. EXTREMITIES: Normal range of motion. No edema. SKIN: Warm, dry. Capillary refill normal. Normal skin turgor. Tiny papule to the base the 2nd finger the dorsum of the hand, consistent with small insect bite. The surrounding area is faintly pink and mildly edematous. This area is tender. The tenderness spreads to the dorsum of the hand and wrist. Distal sensation intact. Capillary refill normal. Radial pulse normal. Full range of motion of the fingers and wrist. NEURO: No focal deficits. Alert and oriented x3. Gait steady. PSYCH: Normal affect. No signs of depression or anxiety. Course Course Level of Care: Express Care Visit Vital Signs Vital signs: Vital Signs Temperature 98.2 F 11/09/24 18:32 Pulse Rate 77 11/09/24 18:32 Respiratory Rate 16 11/09/24 18:32 Blood Pressure 168/114 H 11/09/24 18:32 Pulse Oximetry 99 11/09/24 18:32 Oxygen Delivery Room Air 06/12/25 18:32 Temperature 98.2 F 11/09/24 18:32 Pulse Rate 77 11/09/24 18:32 Respiratory Rate 16 11/09/24 18:32 Blood Pressure 168/114 H 11/09/24 18:32 Pulse Oximetry 99 11/09/24 18:32 Oxygen Delivery Room Air 11/09/24 18:32 Reviewed. Patient states she was on hypertensive medication but her PCP has taken her off it. Advised to follow-up MDM - Skin/Abscess/Foreign Bdy MDM Narrative Medical decision making narrative: Patient has an insect bite to the dorsum of her hand with some swelling and developing erythema. No evidence of active bacterial infection. Will start her on some prednisone. Instructed to also try an anti-inflammatory such as Aleve or ibuprofen. Patient agrees with plan. Differential Diagnosis Differential diagnosis: Likely abscess of skin or subcutaneous tissue, cellulitis, insect bites and contact dermatitis Discharge Plan Discharge Clinical Impression: Allergic reaction to insect bite Patient Disposition: Home Condition: Stable Instructions: Insect Bite or Sting (ED) Additional Instructions: Please start the prednisone and take as directed. You may also try an anti-inflammatory such as Aleve at our ibuprofen or a topical medication for itching such as topical Benadryl or hydrocortisone cream. Up with your PCP next week if symptoms persist. Monitor for any signs of infection such as redness, swelling, warmth, and follow-up sooner if you notice any of these. Your blood pressure was elevated above 120/80 today at Urgent Care. This puts you above the threshold for follow up. Please schedule a followup visit with your personal physician as soon as possible, for further evaluation and treatment. Even blood pressure exceeding 120/80 may indicate pre-hypertension. Patient Language: Irish Prescriptions: New prednisone 20 mg tablet 40 mg PO DAILY 5 Days Qty: 10 0RF No Action prazosin 1 mg capsule 1 mg PO DAILY prednisone 50 mg tablet 50 mg PO DAILY 5 Days Qty: 5 0RF quetiapine 100 mg tablet 100 mg PO QHS sertraline 50 mg tablet See Rx Instructions .ROUTE .COMPLEX Qty: 30 1RF Dose Instruction: TAKE 1 TABLET BY MOUTH DAILY Rx Instructions: TAKE 1 TABLET BY MOUTH DAILY Follow-up/Referrals: PHYSICIAN,SALT OPERATOR [Primary Care Provider] - Time of Disposition: 19:07
== END 2024-11-09 19:10 | disposition home or self-care (01) ==
PROVIDERS: Emergency Provider Nurse Practitioner
DX: S60.562A Insect bite (nonvenomous) of left hand, initial encounter (principal); W57.XXXA Bitten or stung by nonvenomous insect and other nonvenomous arthropods, initial encounter; I10 Essential (primary) hypertension; E66.9 Obesity, unspecified; Z68.41 Body mass index [BMI] 40.0-44.9, adult; F32.A Depression, unspecified; Z87.891 Personal history of nicotine dependence; Z96.612 Presence of left artificial shoulder joint
CPT/HCPCS: 99213; G0463

== ENCOUNTER 2024-12-06 17:49 | Emergency (ER) | payer BC, SELFPAY ==
[2024-12-06 18:00] VITALS: BP 187/130; PULSE 95; RESP 16; TEMP 36.6; O2SAT 99
--- NOTE | 2024-12-06 18:07 | ED_ITS ---
HPI - Skin/Abscess/Foreign Bdy General Chief complaint: Skin/Abscess/Foreign Body Stated complaint: INSECT STING Time Seen by Provider: 12/06/24 18:07 Source: patient Mode of arrival: ambulatory Limitations: no limitations History of Present Illness HPI narrative: 44-year-old female presents with complaint of tenderness to left upper thigh. Patient was leaving park after fishing and felt sudden sting to buttock area. All systems reviewed and negative except as noted above. Related Data Home Medications ?Medication ?Instructions ?Recorded ?Confirmed ?Last Taken ?Type prazosin 1 mg capsule 2 mg PO Q12H 02/10/21 12/06/24 Unknown History lisinopril 10 mg tablet 10 mg PO DAILY 12/06/24 12/06/24 Unknown History sertraline 50 mg tablet 100 mg PO Q24H 12/06/24 12/06/24 Unknown History Allergies Allergy/AdvReac Type Severity Reaction Status Date / Time No Known Allergies Allergy Unknown Verified 12/06/24 17:56 Review of Systems Review of Systems: CONSTITUTIONAL: Denies fever, chills, or sweats. EYES: Denies visual changes, redness, or discharge. ENT: Denies rhinorrhea, congestion, sore throat, or otalgia. CARDIOVASCULAR: Denies chest pain, palpitations, or edema. RESPIRATORY: Denies cough or dyspnea. GASTROINTESTINAL: Denies abdominal pain, nausea, vomiting, or diarrhea. GENITOURINARY: Denies dysuria or hematuria. SKIN: insect bite L upper thigh MUSCULOSKELETAL: Denies back pain, joint pain, or myalgia. NEUROLOGIC: Denies headache, numbness, or weakness. PSYCHIATRIC: Denies anxiety or depression. All other systems reviewed are negative, except as documented in HPI. [facility] Past Medical History Medical History Depression Obesity Essential (primary) hypertension Migraine, unspecified, not intractable, without status migrainosus Surgical History Surgical History History of arthroplasty of left shoulder Family History Family History Sibling Family history of mental disorder Depression Family history of migraine headaches Father Depression Hypertension Mother Family history of diabetes mellitus in first degree relative Diabetes mellitus Social History Social History Smoking packs per day: 0.5 Smoking cigarettes per day: 10.0 Years smoked: 4 Smoking pack-years: 2.00 Smoking status: Former smoker Tobacco type: cigarettes Second hand tobacco smoke exposure: No Smoking end date: 08/05/06 Alcohol intake: never Substance use: never Substance use type: does not use Lack of Transportation: No Lack of Food: Never True Current Housing: I Have Housing Concerned About Future Housing: No Difficulty Paying Gas/Electric Bills: No Difficulty Paying for Meds: No Currently Unemployed: No Education: Bachelor's Degree Difficulty w/ Childcare or Family Care: No Comments At time of signature, agree with nursing past medical, surgical, social and family history. There is no relevant family history pertinent to the presenting complaint. Exam Narrative: GENERAL: This is a well-nourished, well-developed patient, in no apparent distress. HEAD: normocephalic, atraumatic. EYES: PERRL. Sclera clear/white. Vision is grossly intact. EARS: External ears normal NOSE: External nose normal NECK: Neck supple, non-tender without lymphadenopathy, masses or thyromegaly. CARDIOVASCULAR: Regular rate and rhythm without murmurs, gallops, or rubs. RESPIRATORY: Clear to auscultation. Breath sounds equal bilaterally. No wheezes, rales, or rhonchi. SKIN: warm, Dry, intact with no suspicious lesions or rash, good texture and turgor. Erythematous raised area to posterior aspect of left upper thigh approximately 2 cm diameter. No fluctuance concerning for abscess. NEURO: awake, alert, and oriented to person, place and time. There were no obvious focal neurologic abnormalities. EXTREMITIES: No joint tenderness, effusion, or edema noted. Course Course Level of Care: Express Care Visit Vital Signs Vital signs: Vital Signs Temperature 36.6 C 12/06/24 18:00 Pulse Rate 95 12/06/24 18:00 Respiratory Rate 16 12/06/24 18:00 Blood Pressure 187/130 H 12/06/24 18:00 Pulse Oximetry 99 12/06/24 18:00 Temperature 36.6 C 12/06/24 18:00 Pulse Rate 95 12/06/24 18:00 Respiratory Rate 16 12/06/24 18:00 Blood Pressure 187/130 H 12/06/24 18:00 Pulse Oximetry 99 12/06/24 18:00 Reviewed BP 150/92 rechecked manually MDM - Skin/Abscess/Foreign Bdy MDM Narrative Medical decision making narrative: will treat insect sting with steroid, antihistamine and ibuprofen. pt is well appearing, toxic. no distress. Discharge Plan Discharge Clinical Impression: Accidental insect sting Patient Disposition: Home Condition: Stable Instructions: Insect Bite or Sting (ED) Additional Instructions: Take medications as prescribed. Apply steroid cream sparingly to affected area. Take a antihistamine daily such as claritin or zyrtec. Patient Language: Maori Prescriptions: New ibuprofen 600 mg tablet 600 mg PO Q6H PRN (Reason: pain) Qty: 30 0RF methylprednisolone [Medrol (Fredy)] 4 mg tablets,dose pack See Rx Instructions PO .COMPLEX Qty: 21 0RF Rx Instructions: orally per package directions triamcinolone acetonide 0.1 % cream 1 applic topical BID PRN (Reason: insect bite) Qty: 30 0RF No Action prazosin 1 mg capsule 2 mg PO Q12H lisinopril 10 mg tablet 10 mg PO DAILY sertraline 50 mg tablet 100 mg PO Q24H Rx Instructions: TAKE 1 TABLET BY MOUTH DAILY Follow-up/Referrals: Debra,Salvador Covington MD [Primary Care Provider] - Time of Disposition: 18:11
== END 2024-12-06 18:15 | disposition home or self-care (01) ==
PROVIDERS: Emergency Provider Nurse Practitioner Family; PCP Internal Medicine Geriatric Medicine
DX: T63.481A Toxic effect of venom of other arthropod, accidental (unintentional), initial encounter (principal); Z87.891 Personal history of nicotine dependence; I10 Essential (primary) hypertension; E66.9 Obesity, unspecified; Z68.41 Body mass index [BMI] 40.0-44.9, adult; F32.A Depression, unspecified
CPT/HCPCS: 99213; G0463